=== PATIENT | female | born 1975 | race Two or more races ===

== ENCOUNTER 2023-11-24 17:47 | Emergency (ER) | payer OTHER ==
[~2023-11-24] VITALS: Ht 165.1 cm; Wt 74.5 kg
[2023-11-24] MEDS ORDERED: TRAZODONE HCL100 MG PO (17:59)
[2023-11-24] MEDS ORDERED: CYCLOBENZAPRINE5 MG PO (17:59)
[2023-11-24] MEDS ORDERED: ondansetron HCL 4 MG TAB PO ONE (18:15)
[2023-11-24] MEDS ORDERED: NAPROXEN 500 MG TAB PO ONE (18:15)
[2023-11-24] MEDS ORDERED: ONDANSETRON ODT4 MG PO (18:19)
[2023-11-24 18:55] VITALS: BP 176/107
== END 2023-11-24 18:55 | disposition home or self-care (01) ==
LOC: ED 17:47
DX: S06.0X0A Concussion without loss of consciousness, initial encounter (principal); W22.8XXA Striking against or struck by other objects, initial encounter; J45.909 Unspecified asthma, uncomplicated; Z88.5 Allergy status to narcotic agent; Z79.899 Other long term (current) drug therapy
CPT/HCPCS: 99283; A9270